=== PATIENT | male | born 1950 | race Caucasian/White ===

== ENCOUNTER 2017-10-23 04:39 | Emergency (ER) ==
[2017-10-23] MEDS ORDERED: URO-JET MUCOUSMEMB STA (04:53)
[2017-10-23] MEDS ORDERED: FLOMAX PO STA (04:54)
[2017-10-23] MEDS ORDERED: URO-JET MUCOUSMEMB ONE (04:55)
[2017-10-23 05:00] VITALS: BP 154/96; TEMP 98; BMI 25.7
--- NOTE | 2017-10-23 06:25 | CT ---
Exam: CT of the abdomen and pelvis without contrast History: Urinary obstruction Technique: [address] of the abdomen pelvis without intravascular contrast FINDINGS: There is a 0.8 cm indeterminate nodule of the right lower lobe. The lung bases are clear otherwise. No significant liver abnormality. The adrenals, pancreas and spleen are unremarkable. The stomach and hiatus are unremarkable.The gallbladder appears normal. Bilateral perinephric and periur eteral stranding without hydronephrosis. No urolithiasis is seen. The appendix is normal. Atherosc lerotic calcification of the aorta without aneurysm or dissection. Normal caliber bowel loops. Markedly enlarged prostate gland measuring 7.2 x 6.5 x 6.3 cm. Nondistended urinary bladder with Fol ey catheter in place. Normal pelvic colonic loops. No acute findings of the skeleton. Impression: 1. Bilateral periureteral stranding. Correlate for urinary tract infection. There is no hydronephr osis. Chronic coarse perinephric stranding bilaterally as well. 2. Markedly enlarged prostate gland. Vaughan catheter decompresses the urinary bladder. 3. Nonobstructive bowel pattern. 4. Indeterminate nodule in the right lung base. Recommend chest CT to evaluate for additional nodul es.
--- NOTE | 2017-10-23 06:28 | ED.PDOC ---
General Stated Complaint: i cant pee Time Seen by Physician: 04:45 Mode of Arrival: Walk-In Information Source: Patient, Family Exam Limitations: No limitations Nursing and Triage Documentation Reviewed and Agree: Yes Does patient meet sepsis criteria?: No System Inflammatory Response Syndrome: Not Applicable <SOTERO-ERGAEL Filed: 10/23/17 06:41> <TIFFANY BELLO Filed: 10/23/17 07:30> ED Provider: Dr. TIFFANY BELLO Chief Complaint: Urinary Problem Sepsis Protocol: For patient's 13 years and over: Temp is 96.8 and below OR 101 and greater Pulse >90 BPM Resp >20/minute Acutely Altered Mental Status Are patient's symptoms suggestive of a new infection, such as: -Pneumonia -Skin, Soft Tissue -Endocarditis -UTI -Bone, Joint Infection -Implantable Device -Acute Abdominal Infection -Wound Infection -Meningitis -Blood Stream Catheter Infection -Unknown Complaint Exam - Complaint/Exam Onset/Duration: 8hrs Symptoms Are: Still present Timing: Constant Initial Severity: Mild Current Severity: Moderate Location of Pain: Reports: Suprapubic Character: Reports: Constant pressure, Dull, Cramping, Bloody urine Aggravating: Reports: Voiding, Straining Alleviating: Reports: None Associated Signs and Symptoms: Reports: Decreased urine output, Abdominal Pain Testicular Torsion Risk Factors: Reports: None Surgical Obstruction Risk Factors: Reports: None Related Surgical History: Reports: None Abdominal Findings: Present: None Differential Diagnoses: Other <GAEL HOWE Filed: 10/23/17 06:41> Review of Systems - Review Of Systems Constitutional: Reports: No symptoms Eyes: Reports: No symptoms Ears, Nose, Mouth, Throat: Reports: No symptoms Respiratory: Reports: No symptoms Cardiac: Reports: No symptoms GI: Reports: Abdominal pain : Reports: No symptoms Musculoskeletal: Reports: No symptoms Skin: Reports: No symptoms Neurological: Reports: No symptoms Endocrine: Reports: No symptoms Hematologic/Lymphatic: Reports: No symptoms All Other Systems: Reviewed and Negative <SOTERO-ADRIANAGAEL Filed: 10/23/17 06:41> Past Medical History - Past Medical History Previously Healthy: No Endocrine: Reports: Unknown Cardiovascular: Reports: Unknown Respiratory: Reports: Unknown Hematological: Reports: Unknown Gastrointestinal: Reports: Unknown Genitourinary: Reports: Unknown Neuro/Psych: Reports: Unknown Musculoskeletal: Reports: Unknown Cancer: Reports: Unknown - Surgical History General Surgical History: Reports: Unknown - Family History Family History: Reports: Unknown - Social History Smoking Status: Current every day smoker, Heavy tobacco smoker Hx Substance Use: No Alcohol Screening: Occasionally - Immunizations Tetanus Shot up to Date: Yes <GAEL HOWE - Last Filed: 10/23/17 06:41> Physical Exam - Physical Exam Appearance: Well-appearing, No pain distress, Well-nourished Pain Distress: Mild Eyes: MARY, EOMI, Conjunctiva clear ENT: Ears normal, Nose normal, Oropharynx normal Neck: Supple Respiratory: Airway patent, Breath sounds clear, Breath sounds equal, Respirations nonlabored Cardiovascular: RRR, Pulses normal, No rub, No murmur GI/: Soft, Nontender, No masses, Bowel sounds normal, No Organomegaly Musculoskeletal: Normal strength, ROM intact, No edema, No calf tenderness Skin: Warm, Dry, Normal color Neurological: Sensation intact, Motor intact, Reflexes intact, Cranial nerves intact, Alert, Oriented Psychiatric: Affect appropriate, Mood appropriate <GAEL HOWE Last Filed: 10/23/17 06:41> Interpretation - Radiology Interpretation Radiology Interpretation By: Radiologist Radiology Results: Positive Exam Interpreted: CT Scan <GAEL HOWE Last Filed: 10/23/17 06:41> Critical Care Note - Critical Care Note Total Time (mins): 0 <GAEL HOWE - Last Filed: 10/23/17 06:41> Course - Course Hematology/Chemistry: 10/23/17 05:40 10/23/17 05:40 <GAEL HOWE - Last Filed: 10/23/17 06:41> - Course Hematology/Chemistry: 10/23/17 05:40 10/23/17 05:40 <TIFFANY BELLO - Last Filed: 10/23/17 07:30> - Course Orders, Labs, Meds: Lab Review 10/23/17 10/23/17 10/23/17 05:05 05:40 05:40 WBC 16.11 H RBC 5.05 Hgb 15.3 Hct 45.7 MCV 90.5 MCH 30.3 MCHC 33.5 RDW Coeff of Elsa 13.0 Plt Count 216 Immature Gran % (Auto) 0.4 Neut % (Auto) 79.5 Lymph % (Auto) 15.5 [place] % (Auto) 3.9 Eos % (Auto) 0.4 Baso % (Auto) 0.3 Immature Gran # (Auto) 0.1 Neut # (Auto) 12.8 H Lymph # (Auto) 2.5 [place] # (Auto) 0.6 Eos # (Auto) 0.1 Baso # (Auto) 0.1 Sodium 133 L Potassium 3.9 Chloride 100 Carbon Dioxide 21 L Anion Gap 15.9 BUN 10 Creatinine 0.65 Estimated GFR (MDRD) 122.00 BUN/Creatinine Ratio 15.38 Glucose 109 Calcium 8.9 Total Bilirubin 0.6 AST 16 ALT 15 Alkaline Phosphatase 61 Total Protein 7.4 Albumin 3.8 Globulin 3.6 Albumin/Globulin Ratio 1.06 Urine Color Light Urine Clarity Slightly Urine pH 5.5 Ur Specific [place] 1.010 Urine Protein Negative Urine Glucose (UA) Negative Urine Ketones Negative Urine Blood 2+ Urine Nitrite Negative Urine Bilirubin Negative Urine Urobilinogen 0.2 Ur Leukocyte Esterase Negative Urine Microscopic RBC 50-100 Urine Microscopic WBC 2-5 Ur Squamous Epith Cells 2-5 Orders Category Date Time Status Bladder Scan [ED BLADDER SCAN] .ONCE EMERGENCY 10/23/17 04:53 Active Vaughan [ED CATHETER INSERTION AND CARE] .ONCE EMERGENCY 10/23/17 04:53 Active CBC W/ AUTO DIFF Stat LAB 10/23/17 05:40 Completed COMPREHENSIVE METABOLIC PANEL Stat LAB 10/23/17 05:40 Completed URINALYSIS C & S IF INDICATED Stat LAB 10/23/17 05:05 Completed Lidocaine HCl [Uro-Jet] MEDS 10/23/17 04:55 Discontinued 10 ml [email or web address] .STK-MED ONE Lidocaine HCl [Uro-Jet] MEDS 10/23/17 04:53 Discontinued 10 ml [email or web address] ONCE STA Tamsulosin HCl [Flomax] MEDS 10/23/17 04:54 Discontinued 0.4 mg PO ONCE STA CT ABD/PEL WO RENAL STONE PROT Stat RADS 10/23/17 04:54 Completed Medications Discontinued Medications Generic Name Dose Route Start Last Admin Trade Name Freq PRN Reason Stop Dose Admin Lidocaine HCl 10 ml 10/23/17 04:53 10/23/17 05:19 Uro-Jet [email or web address] 10/23/17 04:54 10 ml ONCE STA Administration Tamsulosin HCl 0.4 mg 10/23/17 04:54 10/23/17 05:31 Flomax PO 10/23/17 04:55 0.4 mg ONCE STA Administration Vital Signs: Temp Pulse Resp BP Pulse Ox 10/23/17 04:40 98 F 85 18 154/96 H 96 Departure - Departure Time of Disposition: 06:28 Pt referred to PMD for follow-up: No IPMP verified?: No Disposition Discussed With: Patient, Family <GAEL HOWE - Last Filed: 10/23/17 06:41> - Departure Pt referred to PMD for follow-up: Yes IPMP verified?: No Disposition Discussed With: Patient, Family (minimal bleeding noted in the cath bag. will watch for 30 min , discussed with pt and his that XERALTO will not be D/C since that can increase his risk of CVA he must return home and see his cardiologistASAP. THE PULMONARY NODULE WAS ALSO DISCUSSED BOTH REGGIE AND LOULOU WERE PRESENT PT UNDERSTAND HE WOULD REQUIRE A CT SCAN IN ABOUT 3 MONTHS AND FURTHER FOLLOW UP. ADVISED HIM TO STOP SOON POSSIBLE .) <TIFFANY BELLO - Last Filed: 10/23/17 07:30> - Departure Disposition: HOME SELF-CARE Discharge Problem: Urinary obstruction, Enlarged prostate, Lung nodule Urinary tract infection Qualifiers: Urinary tract infection type: site unspecified Hematuria presence: without hematuria Qualified Code(s): N39.0 - Urinary tract infection, site not specified Instructions: Enlarged Prostate (BPH) (ED) Condition: Good Additional Instructions: flomax 0.4 qhs #7---cipro 500mg bid x 10 days---f/u with pcp ?consider urology referral and talk to pcp about f/u on lung nodule Allergies/Adverse Reactions: Allergies Penicillins Adverse Reaction (Verified 10/23/17 04:54) Home Medications: Ambulatory Orders Dronedarone HCl [Multaq] 400 mg PO DAILY 10/23/17 Losartan Potassium [Cozaar] 100 mg PO DAILY 10/23/17
== END 2017-10-23 07:50 | disposition home or self-care (01) ==
LOC: ED 04:39
DX: N39.0 Urinary tract infection, site not specified (principal); R31.29 Other microscopic hematuria; N40.1 Benign prostatic hyperplasia with lower urinary tract symptoms; N13.8 Other obstructive and reflux uropathy; R33.8 Other retention of urine; R91.1 Solitary pulmonary nodule; F17.210 Nicotine dependence, cigarettes, uncomplicated
CPT/HCPCS: 36415; 74176; 80053; 81001; 85025; 99283